=== PATIENT | female | born 1990 | race African-American/Black ===

== ENCOUNTER → 2018-06-24 15:46 | Outpatient (CLI) | payer OTHER, SELFPAY | PROVIDERS: Family Provider Obstetrics & Gynecology; PCP Family Medicine; Visit Provider Obstetrics & Gynecology | DX: Z34.83 Encounter for supervision of other normal pregnancy, third trimester (principal) ==

== ENCOUNTER 2018-07-17 19:09 | Observation (INO) | payer OTHER, SELFPAY | END 2018-07-17 21:15 | disposition home or self-care (01) | LOC: LABOR 19:11 | PROVIDERS: Admitting Provider Specialist; Family Provider Obstetrics & Gynecology; PCP Family Medicine; Visit Provider Specialist | DX: Z34.83 Encounter for supervision of other normal pregnancy, third trimester (principal); Z3A.38 38 weeks gestation of pregnancy | CPT/HCPCS: 59025; 59050; G0378; G0379 ==

== ENCOUNTER 2018-07-19 00:36 | Inpatient (IN) | payer OTHER, SELFPAY ==
[2018-07-19] MEDS: LACTATED RINGERS 1,000 ML 100 ML IV (01:00)
[2018-07-19 01:32] LABS: Add Manual Diff / Slide Review NO; Eosinophils Percent Auto 1.3 % (2-4); Hematocrit 32.3 % (36-46); Hemoglobin 10.9 g/dL (12.0-16.0); Lymphocytes Percent Auto 27.3 % (25-40); Mean Corpuscular HGB Conc 33.9 % (30-36); Mean Corpuscular Hemoglobin 32.3 PG (26-34); Mean Corpuscular Volume 95.2 fL (80-100); Monocytes Percent Auto 7.4 % (3-14); Neutrophils Absolute Auto 7000 /uL (3000-5900); Platelet Count 227 X10^3/uL (150-400); Red Blood Cell Count 3.39 X10^6/uL (4.0-5.2); Red Cell Distribution Width 15.6 % (11.6-14.8); White Blood Cell Count 11.1 X10^3/uL (4.5-11.0)
--- NOTE | 2018-07-19 01:49 | PM.OBPRVD ---
Delivery date: 07/19/18 Intrapartal events: Precipitous Labor < 3 hours Induction method: none Delivery monitor: external FHT and external uterine Route of delivery: Episiotomy description: None Laceration description: None Estimated blood loss (mL): 150 Anesthesia type: None Complications: None Narrative: Patient complete and pushed with 3 contractions. At 1:33 a.m., a live male infant delivered spontaneously over an intact perineum. There was a compound presentation with the right arm with the delivery of the body. This delivered without difficulty and the infant was placed on mom's abdomen. The cord was double clamped and cut. Cord bloods were obtained. Placenta delivered intact with a 3 vessel cord at 1:40 a.m.. Fundus was massaged to firm. No lacerations noted. Apgars 8 at 1 min and 9 at 5 min. . No analgesia. Mom and stable to recovery. Plan for aftercare: To routine care
--- NOTE | 2018-07-19 01:56 | P.HPOB_ITS ---
OB HPI Date/Time Date of admission: 07/19/18 Date Patient Seen: 07/19/18 Time Patient Seen: 01:51 History of Present Condition Chief complaint: observation : 2 Para: 1 Estimated Date of Delivery: 07/26/18 Estimated Gestational Age (weeks): 39 Narrative: Jennifer Lutz is a 28 year old female 2 para 1 at 39 weeks gestation who presented in active labor Comments: She progressed to complete dilation in 20 min. History of Present care: good care, initiated at week # (5), number of visits (10) and pounds weight gain (39) Dating criteria: LMP confirmed by 1st trimester US Ultrasounds: normal 1st trimester US and abnormal US findings (Pyelectasis) Obstetrical complications: none Medical complications: none Preadmission Labs Blood type: O (+) positive -: Antibody screen: negative, GBS status: positive, HBsAG: negative, HIV: negative, HSV 1: positive, HSV 2: negative and RPR/VDLR: negative -: Chlamydia screen: not detected and Gonorrhea screen: not detected -: Rubella: not immune and Varicella: immune HCAB: negative Quad screen: Normal Urine: Negative Prior (ies) History: 1 Evaluation Evaluation Baseline heart rate: 130 Variability: Moderate (11-25) monitor accelerations: Present monitor decelerations: Absent Contraction Frequency (minutes): 3 Uterine Contraction Intensity: Strong/Firm Category of Tracing: I Cervical dilation (cm): 10 Cervical effacement (%): 100 station: +4 Laboratory results: Laboratory Tests 07/19/18 01:00 WBC 11.1 H RBC 3.39 L Hgb 10.9 L Hct 32.3 L MCV 95.2 MCH 32.3 MCHC 33.9 RDW 15.6 H Plt Count 227 Neut % (Auto) 63.0 Lymph % (Auto) 27.3 [place] % (Auto) 7.4 Eos % (Auto) 1.3 L Baso % (Auto) 1.0 Neut # (Auto) 7000 H Meds Allergies Allergy/AdvReac Type Severity Reaction Status Date / Time Sulfa (Sulfonamide Allergy Severe rash Unverified 02/18/18 12:35 Antibiotics) [SULFA (SULFONAMIDE ANTIBIOTICS)] kathie Allergy Severe Uncoded 02/18/18 12:35 Exam Vital Signs (past 8 hours): Generally: Patient in good control at 10 cm dilated without analgesia Objective Labs Result Diagrams: 07/19/18 01:00 Labs: Laboratory Results - last 24 hr 07/19/18 01:00 WBC 11.1 H RBC 3.39 L Hgb 10.9 L Hct 32.3 L MCV 95.2 MCH 32.3 MCHC 33.9 RDW 15.6 H Plt Count 227 Neut % (Auto) 63.0 Lymph % (Auto) 27.3 [place] % (Auto) 7.4 Eos % (Auto) 1.3 L Baso % (Auto) 1.0 Neut # (Auto) 7000 H Assessment and Plan (1) 39 weeks gestation of : Current visit: Yes Status: Acute Assessment: 28-year-old 2 para 1 at 39 weeks gestation in active labor entering 2nd stage Plan: Expectant management of spontaneous vaginal delivery
[2018-07-19] MEDS: IBUPROFEN 600 MG TABLET PO ×4 (03:00→23:08)
[2018-07-19 03:52] VITALS: BP 143/73
--- NOTE | 2018-07-19 04:40 | PM.OBTRLD ---
Visit Information Visit Information Date of evaluation: 07/17/18 Primary OB Provider: Elo Gonsalves Reason for Evaluation: Yes rule out labor Vital Signs Vital Signs: Vital Signs - 8 hr 07/19/18 03:52 Blood Pressure 143/73 H [facility] Social History Smoking Status: Never smoker Exam Vital Signs (past 8 hours): - 07/19/18 03:52 Blood Pressure 143/73 H Objective Labs Result Diagrams: 07/19/18 01:00 Labs: Laboratory Results - last 24 hr 07/19/18 07/19/18 01:00 01:00 WBC 11.1 H RBC 3.39 L Hgb 10.9 L Hct 32.3 L MCV 95.2 MCH 32.3 MCHC 33.9 RDW 15.6 H Plt Count 227 Neut % (Auto) 63.0 Lymph % (Auto) 27.3 [place] % (Auto) 7.4 Eos % (Auto) 1.3 L Baso % (Auto) 1.0 Neut # (Auto) 7000 H Blood Type O Positive Antibody Screen Negative Evaluation Evaluation Baseline heart rate: 140 Variability: Moderate (11-25) monitor accelerations: Present monitor decelerations: Absent Contraction Frequency (minutes): 7 Uterine Contraction Intensity: Mild Category of Tracing: I Cervical dilation (cm): 3 Cervical effacement (%): 80 station: -2 Laboratory results: Laboratory Tests 07/19/18 07/19/18 01:00 01:00 WBC 11.1 H RBC 3.39 L Hgb 10.9 L Hct 32.3 L MCV 95.2 MCH 32.3 MCHC 33.9 RDW 15.6 H Plt Count 227 Neut % (Auto) 63.0 Lymph % (Auto) 27.3 [place] % (Auto) 7.4 Eos % (Auto) 1.3 L Baso % (Auto) 1.0 Neut # (Auto) 7000 H Blood Type O Positive Antibody Screen Negative Diagnosis, Plan/Disposition Final Diagnosis (1) 39 weeks gestation of : Current Visit: Yes Status: Acute Plan/Disposition Plan: Patient is not in active labor and was discharged home to be followed up at her routine OB appointment OB Disposition: home
--- NOTE | 2018-07-19 04:43 | P.TNLD_ITS ---
Visit Information Visit Information Date of evaluation: 07/17/18 Primary OB Provider: Elo Gonsalves Reason for Evaluation: Yes rule out labor Vital Signs Vital Signs: Vital Signs - 8 hr 07/19/18 03:52 Blood Pressure 143/73 H [facility] Social History Smoking Status: Never smoker Exam Vital Signs (past 8 hours): - 07/19/18 03:52 Blood Pressure 143/73 H Objective Labs Result Diagrams: 07/19/18 01:00 Labs: Laboratory Results - last 24 hr 07/19/18 07/19/18 01:00 01:00 WBC 11.1 H RBC 3.39 L Hgb 10.9 L Hct 32.3 L MCV 95.2 MCH 32.3 MCHC 33.9 RDW 15.6 H Plt Count 227 Neut % (Auto) 63.0 Lymph % (Auto) 27.3 [place] % (Auto) 7.4 Eos % (Auto) 1.3 L Baso % (Auto) 1.0 Neut # (Auto) 7000 H Blood Type O Positive Antibody Screen Negative Evaluation Evaluation Baseline heart rate: 140 Variability: Moderate (11-25) monitor accelerations: Present monitor decelerations: Absent Contraction Frequency (minutes): 7 Uterine Contraction Intensity: Mild Category of Tracing: I Cervical dilation (cm): 3 Cervical effacement (%): 80 station: -2 Laboratory results: Laboratory Tests 07/19/18 07/19/18 01:00 01:00 WBC 11.1 H RBC 3.39 L Hgb 10.9 L Hct 32.3 L MCV 95.2 MCH 32.3 MCHC 33.9 RDW 15.6 H Plt Count 227 Neut % (Auto) 63.0 Lymph % (Auto) 27.3 [place] % (Auto) 7.4 Eos % (Auto) 1.3 L Baso % (Auto) 1.0 Neut # (Auto) 7000 H Blood Type O Positive Antibody Screen Negative Diagnosis, Plan/Disposition Final Diagnosis (1) 39 weeks gestation of : Current Visit: Yes Status: Acute Plan/Disposition Plan: Patient is not in active labor and was discharged home to be followed up at her routine OB appointment OB Disposition: home
[2018-07-19] MEDS: OXYCODONE/ACETAMINOPHEN 5/325 TABLET 2 TAB PO ×2 (17:08→21:02)
--- NOTE | 2018-07-19 20:56 | PM.OBPN.1 ---
Subjective - OB Interval history: 28-year-old 2 para 2 day # 0-1 status post spontaneous vaginal delivery Patient comments: no complaints and pain well controlled baby status: doing well and nursing well feeding status: exclusively breast feeding Date Patient Seen: 07/19/18 Time Patient Seen: 13:45 Exam Vital Signs (past 8 hours): Generally: Patient is sitting up in bed, nursing infant, no acute distress Fundus: Firm at U Extremities: Negative Hom[place], no edema Objective Labs Result Diagrams: 07/19/18 01:00 Labs: Laboratory Results - last 24 hr 07/19/18 07/19/18 01:00 01:00 WBC 11.1 H RBC 3.39 L Hgb 10.9 L Hct 32.3 L MCV 95.2 MCH 32.3 MCHC 33.9 RDW 15.6 H Plt Count 227 Neut % (Auto) 63.0 Lymph % (Auto) 27.3 [place] % (Auto) 7.4 Eos % (Auto) 1.3 L Baso % (Auto) 1.0 Neut # (Auto) 7000 H Blood Type O Positive Antibody Screen Negative Assessment & Plan (1) 39 weeks gestation of : Status: Acute Current Visit: Yes (2) Normal spontaneous vaginal delivery: Status: Acute Assessment and plan: Assessment: day # 0-1 status post spontaneous vaginal delivery, doing very well Plan: Anticipate discharge 07/20/2018 Continue routine care Current Visit: Yes Time Spent With Patient Total time spent is greater than 50% in coordination of care (as documented) at patient's floor/unit and/or counseling patient: less than 15 minutes
[2018-07-20] MEDS: OXYCODONE/ACETAMINOPHEN 5/325 TABLET 2 TAB PO (01:15)
[2018-07-20 05:08] VITALS: TEMP 36.6
[2018-07-20] MEDS: IBUPROFEN 600 MG TABLET PO (05:08)
--- NOTE | 2018-07-20 07:54 | P.DS_ITS ---
Discharge Providers Date of admission: 07/19/18 00:36 Primary care physician: Jess Buckley DO Consults: 07/19/18 02:59 Consult to [employer] Technology Instructor Routine Comment: Discharge provider: Latrice Dominguez MD Discharge Date: 07/20/18 Summary Date Patient Seen: 07/20/18 Time Patient Seen: 07:54 Peripartum Data Infant Delivery Method: Natural Vaginal Laceration description: None Discharge Diagnosis (1) 39 weeks gestation of : Status: Acute (2) Normal spontaneous vaginal delivery: Status: Acute Time Spent with Patient Total time spent providing and/or coordinating discharge services: Objective Labs Result Diagrams: 07/19/18 01:00 Discharge Plan Discharge Plan Patient Disposition: Home Discharge Med Rec/Prescriptions Prescriptions: No Action No Known Home Medications RF: 0 Follow up/Referrals: Elo Gonsalves MD [Family Provider] - 6 Weeks Jess Buckley DO [Primary Care Provider] - Provider Discharge Instructions Diet: Regular Skin/Wound/Dressing Care Report to your healthcare provider any signs of infection, such as:: chills, fever, increased pain and unusual drainage Discharge Data Primary Care Provider: Jess Buckley Attending Provider: Elo Gonsalves Admit Date/Time: 07/19/18 00:36
[2018-07-20] MEDS: MEASLES,MUMPS,RUBELLA VACC/PF 0.5 ML VIAL SUBCUT (08:56)
[2018-07-20 09:42] VITALS: BP 120/85; PULSE 82; RESP 17; TEMP 36.7
== END 2018-07-20 11:00 | disposition home or self-care (01) | DRG 775 ==
PROVIDERS: Admitting Provider Obstetrics & Gynecology; Family Provider Obstetrics & Gynecology; PCP Family Medicine; Visit Provider Obstetrics & Gynecology
DX: O99.824 Streptococcus B carrier state complicating childbirth (principal); Z3A.39 39 weeks gestation of pregnancy; Z37.0 Single live birth
CPT/HCPCS: 59025; 59050; 59400; 85025; 86850; 86900; 86901; G0379

== ENCOUNTER → 2019-01-04 14:56 | Outpatient (CLI) | payer OTHER, SELFPAY ==
--- NOTE | 2019-01-04 14:57 | DI.US.S_ITS ---
PROCEDURE: US PELVIC COMPLETE INDICATIONS: lower abdominal pain TECHNIQUE: Real-time scanning was performed of the pelvic organs, with image documentation. Additional endovaginal scanning was necessary due to incomplete visualization of the adnexal and endometrial structures by transabdominal scanning. COMPARISON: None. FINDINGS: Transabdominal scanning: Limited scanning through the kidneys shows no hydronephrosis. No pathologic free abdominal or pelvic fluid. Endovaginal scanning: Uterus: Uterus is normal in size at 8.8 x 3.7 x 4.5 cm. The endometrium measures 3-4 mm in combined thickness. Hypoechoic uterine lesions are seen, which are attributed to fibroids. They measure as follows: Right anterior uterus, 1.1 x 0.6 x 0.8 cm Left posterior uterus, 1.5 x 1.1 x 1.2 cm Ovaries: The right ovary measures 4.4 x 1.8 x 1.8 cm. The left ovary measures 3.7 x 2.4 x 2.6 cm. The ovaries have a normal sonographic appearance, with normal-appearing cystic follicles. No adnexal masses are seen. IMPRESSION: Small uterine fibroids are seen. Dictated by: David Escobedo M.D. on 01/04/2019 at 16:00 Approved by: David Escobedo M.D. on 01/04/2019 at 16:02
== END ==
PROVIDERS: Family Provider Obstetrics & Gynecology; PCP Family Medicine; Visit Provider Obstetrics & Gynecology
DX: D25.9 Leiomyoma of uterus, unspecified (principal); R10.30 Lower abdominal pain, unspecified; N91.2 Amenorrhea, unspecified
CPT/HCPCS: 76830; 76856

== ENCOUNTER → 2019-06-22 14:47 | Outpatient (CLI) | payer OTHER, SELFPAY ==
[2019-06-22 15:32] LABS: Add Manual Diff / Slide Review NO; Basophils Absolute Auto 100 /uL (0-100); Basophils Percent Auto 0.7 % (0-2); Eosinophils Absolute Auto 100 /uL (0-450); Eosinophils Percent Auto 1.6 % (2-4); Hematocrit 38.5 % (36-46); Lymphocytes Absolute Auto 2100 /uL (1100-4500); Lymphocytes Percent Auto 26.5 % (25-40); Mean Corpuscular HGB Conc 33.8 % (30-36); Mean Corpuscular Hemoglobin 30.5 PG (26-34); Mean Corpuscular Volume 90.2 fL (80-100); Monocytes Absolute Auto 400 /uL (0-900); Monocytes Percent Auto 4.5 % (3-14); Neutrophils Absolute Auto 5200 /uL (1500-7000); Neutrophils Percent Auto 66.7 % (50-75); Platelet Count 299 X10^3/uL (150-400); Red Blood Cell Count 4.27 X10^6/uL (4.0-5.2); Red Cell Distribution Width 13.3 % (11.6-14.8); White Blood Cell Count 7.8 X10^3/uL (4.5-11.0)
[2019-06-22 15:44] LABS: Appearance Urine UA CLEAR; Bilirubin Urine UA NEGATIVE (NEGATIVE); Color Urine UA YELLOW; Glucose Urine UA NEGATIVE (Negative); Ketones Urine UA NEGATIVE (NEGATIVE); Leukocyte Esterase Urine UA TRACE (NEGATIVE); Nitrite Urine UA NEGATIVE (Negative); Occult Blood Urine UA 1+ (Negative); Protein Urine UA NEGATIVE (Negative); Urobilinogen Urine UA 0.2 E.U./dL (0.2)
[2019-06-22 15:58] LABS: Alanine Aminotransferase 29 IU/L (9-52); Albumin 4.6 g/dL (3.5-5.0); Albumin Globulin Ratio 1.2 (1.0-2.8); Alkaline Phosphatase 84 U/L (38-126); Aspartate Aminotransferase 33 IU/L (14-36); BUN Creatinine Ratio 21.3 (6-22); Bilirubin Total 0.3 mg/dL (0.2-1.3); Blood Urea Nitrogen 17 mg/dL (7-17); Calcium 9.9 mg/dL (8.4-10.2); Carbon Dioxide 29 mmol/L (22-32); Chloride 105 mmol/L (98-107); Estimated Glomerular Filt Rate > 60.0 mL/min (>60); Globulin 3.8 g/dL (1.7-4.1); Glucose 95 mg/dL (70-100); HEMOLYSIS < 15 (0-50); Potassium 3.8 mmol/L (3.4-5.1); Sodium 143 mmol/L (137-145); Total Protein 8.4 g/dL (6.3-8.2)
[2019-06-22 16:17] LABS: RBC Urine 0-1/HPF (0-5/HPF); WBC Urine 5-10/HPF (0-5/HPF)
[2019-06-22 16:18] LABS: Amorphous Sediment Urine 1+; Bacteria Urine Moderate (10-30); Culture Indicated Urine Specimen Cultured; Mucus Urine 1+ (Negative); Squamous Epithelial Cell Urine 5-10 /HPF (0-5/HPF)
[2019-06-22 16:29] LABS: TSH w/ Reflex to FT4 1.27 uIU/mL (0.47-4.68)
== END ==
PROVIDERS: PCP Family Medicine; Visit Provider Registered Nurse
DX: R23.2 Flushing (principal)
CPT/HCPCS: 36415; 80053; 81001; 84443; 85025; 87086

== ENCOUNTER → 2025-01-04 12:22 | Outpatient (CLI) | payer OTHER, SELFPAY ==
[2025-01-04 12:57] LABS: Add Manual Diff / Slide Review NO; Basophils Absolute Auto 100 /uL (0-100); Basophils Percent Auto 0.7 % (0-2); Eosinophils Absolute Auto 200 /uL (0-450); Hematocrit 35.4 % (36-46); Hemoglobin 12.1 g/dL (12.0-16.0); Lymphocytes Absolute Auto 1800 /uL (1100-4500); Lymphocytes Percent Auto 21.8 % (25-40); Mean Corpuscular HGB Conc 34.2 % (30-36); Mean Corpuscular Hemoglobin 31.7 PG (26-34); Mean Corpuscular Volume 92.6 fL (80-100); Monocytes Absolute Auto 500 /uL (0-900); Monocytes Percent Auto 5.5 % (3-14); Neutrophils Absolute Auto 5800 /uL (1500-7000); Platelet Count 244 X10^3/uL (150-400); Red Blood Cell Count 3.83 X10^6/uL (4.0-5.2); Red Cell Distribution Width 13.2 % (11.6-14.8); White Blood Cell Count 8.2 X10^3/uL (4.5-11.0)
[2025-01-04 13:13] LABS: Alanine Aminotransferase 21 IU/L (<35); Albumin 4.5 g/dL (3.5-5.0); Albumin Globulin Ratio 1.4 (1.0-2.8); Alkaline Phosphatase 53 U/L (38-126); Aspartate Aminotransferase 27 IU/L (14-36); BUN Creatinine Ratio 23.5 (6-22); Bilirubin Total 0.5 mg/dL (0.2-1.3); Blood Urea Nitrogen 16 mg/dL (7-17); Calcium 9.3 mg/dL (8.4-10.2); Carbon Dioxide 27 mmol/L (22-32); Chloride 102 mmol/L (98-107); Cholesterol 172 mg/dL (140-199); Estimated Glomerular Filt Rate > 60 mL/min (>60); Globulin 3.2 g/dL (1.7-4.1); Glucose 92 mg/dL (70-100); HDL Cholesterol 51 mg/dL (40-60); HEMOLYSIS < 15 (0-50); LDL Cholesterol Calculated 115 mg/dL (<100); Potassium 3.7 mmol/L (3.4-5.1); Sodium 136 mmol/L (137-145); Total Protein 7.7 g/dL (6.3-8.2); Triglycerides 30 mg/dL (35-150)
[2025-01-04 13:15] LABS: Hemoglobin A1C% w Est Avg Glu 4.8 % (4.0-6.0)
[2025-01-04 13:47] LABS: Thyroid Stimulating Hormone 1.09 uIU/mL (0.47-4.68)
== END ==
PROVIDERS: PCP Family Medicine; Referring Provider Family Medicine; Visit Provider Family Medicine
DX: I10 Essential (primary) hypertension (principal); Z68.32 Body mass index [BMI] 32.0-32.9, adult
CPT/HCPCS: 80053; 80061; 83036; 84443; 85025

== ENCOUNTER 2025-06-12 10:38 | Emergency (ER) | payer OTHER, SELFPAY ==
[2025-06-12 11:37] VITALS: BP 127/78; PULSE 49; RESP 18; TEMP 36.2; O2SAT 99; BMI 31.6
--- NOTE | 2025-06-12 11:42 | DI.RAD.S_ITS ---
PROCEDURE: XR FOOT LT MIN 3V INDICATIONS: injury/increased pain TECHNIQUE: 3 views of the foot were acquired. COMPARISON: [facility], , FOOT 2V RIGHT, 07/28/2016, 11:44. FINDINGS: Bones: On 1 image, there is a potential fracture of the proximal phalanx of the 4th toe. No suspicious bony lesions. Age-appropriate bony degenerative changes are seen. Soft tissues: No tibiotalar joint effusion. Achilles tendon appears normal. IMPRESSION: Potential fracture of the 4th toe seen on 1 image only. Please correlate with focal tenderness. Dictated by: David Escobedo M.D. on 06/12/2025 at 11:29 Approved by: David Escobedo M.D. on 06/12/2025 at 11:31
--- NOTE | 2025-06-12 13:21 | ED.LOWEXIN ---
HPI - Extremity Injury (Lower) General Chief Complaint: Extremity Injury, Lower Stated Complaint: Poss broken toe: LT foot 4th digit Time Seen by Provider: 06/12/25 13:08 Source: patient Mode of arrival: Ambulatory History of Present Illness HPI Narrative: Ms. Lutz is a very pleasant 35-year-old female who presents to the emergency department for left 4th toe pain x2 days. Patient states about 2 days ago she accidentally stubbed her left 4th toe on a copy below her bed. She had immediate severe pain at the base of the 4th toe. She is currently on a fitness journey so she attempted to continue exercising over the last 2 days but she has had persistent pain and was concerned she may have broken the toe. She has focal pain at the base of the 4th toe overlying the proximal phalanx. There is no bruising or deformities. She has been taping it to her 5th toe. No other injuries. Related Data Previous Rx's ?Medication ?Instructions ?Recorded hydrochlorothiazide 50 mg tablet 50 mg PO DAILY #60 tabs 12/16/24 Allergies Allergy/AdvReac Type Severity Reaction Status Date / Time Sulfa (Sulfonamide Allergy Severe rash Verified 06/12/25 11:38 Antibiotics) (SULFA (SULFONAMIDE ANTIBIOTICS)) kathie Allergy Severe Rash Uncoded 06/12/25 11:38 Review of Systems Review of Systems ROS Unobtainable: All systems reviewed & are unremarkable except as noted in HPI and below Patient History Medical History Hypertension Fracture of right toe Family History Father Hypertension Mother Hypertension Mental health problem Brother Mental health problem Grandmother Hypertension Grandfather Hypertension Grandmother Hypertension Social History Smoking Status: Never smoker Smoking Status: Never smoker Exam Narrative Exam Narrative: GENERAL: 35 year old patient appears stated age. Well-developed patient, in no acute distress. HEAD: Atraumatic. Normocephalic. CARDIOVASCULAR: Regular rate RESPIRATORY: ?Nonlabored respirations. ?Speaking in clear, full sentences. EXTREMITIES: Patient has tenderness to palpation of left 4th toe overlying the proximal phalanx. There are no obvious deformities, toe is straight, no bruising or wounds. Brisk capillary refill and sensation intact to light touch distal to the injury. Strong DP and PT pulse. NEURO: AOx3. ?Clear speech. ?Moves all 4 extremities appropriately. SKIN: No rash or erythema of visible areas Initial Vital Signs Initial Vital Signs: Vital Signs Temperature 97.2 F L 06/12/25 11:37 Pulse Rate 49 L 06/12/25 11:37 Respiratory Rate 18 06/12/25 11:37 Blood Pressure 127/78 06/12/25 11:37 Pulse Oximetry 99 06/12/25 11:37 Oxygen Delivery Method Room Air 06/12/25 11:37 Course Orders Ordered: ED Orders 06/12/25 11:42 XR foot LT min 3V Stat Vital Signs Vital signs: Vital Signs - 8 hr 06/12/25 11:37 06/12/25 13:27 Temperature 97.2 F L Pulse Rate 49 L 56 L Respiratory Rate 18 18 Blood Pressure 127/78 136/82 Pulse Oximetry 99 100 Oxygen Delivery Method Room Air Room Air MDM - Extremity Injury (Lower) Medical Records Attestation: I reviewed the patient's medical records. Imaging Data Left Foot XR: Radiologist's Impression: PROCEDURE: XR FOOT LT MIN 3V INDICATIONS: injury/increased pain TECHNIQUE: 3 views of the foot were acquired. COMPARISON: [facility], , FOOT 2V RIGHT, 07/28/2016, 11:44. FINDINGS: Bones: On 1 image, there is a potential fracture of the proximal phalanx of the 4th toe. No suspicious bony lesions. Age-appropriate bony degenerative changes are seen. Soft tissues: No tibiotalar joint effusion. Achilles tendon appears normal. IMPRESSION: Potential fracture of the 4th toe seen on 1 image only. Please correlate with focal tenderness. Dictated by: David Escobedo M.D. on 06/12/2025 at 11:29 Approved by: David Escobedo M.D. on 06/12/2025 at 11:31 [facility] Narrative Medical decision making narrative: 35-year-old female who presents to the emergency department for left 4th toe pain x2 days. Differential diagnosis includes but isn't limited due to fracture, sprain, strain, etc. On exam patient is in no acute distress, nontoxic appearing, she has focal tenderness to palpation of the base of the 4th toe with no deformities wounds or bruising. X-ray obtained in triage reveals potential fracture of the 4th toe seen on 1 image only, please correlate with focal tenderness. Diagnosis of left 4th toe proximal phalanx fracture, recommended ryan tape, she was provided with a postoperative shoe and crutches. Recommended rice therapy, ibuprofen and Tylenol, follow up with PCP or ortho for further management. Discussed ED return precautions. She verbalized understanding of all information agreeable with the plan. She is stable for discharge home. Discharge Plan Departure Patient Disposition: Home Clinical Impression: Closed fracture of fourth toe of left foot Qualifiers: Encounter type: initial encounter Qualified Code(s): S92.502A - Displaced unspecified fracture of left lesser toe(s), initial encounter for closed fracture Instructions: DI for Toe Fracture Activity Restrictions/Additional Instructions: Dear Ms. Lutz, Thank you for coming to the emergency department. Today you were evaluated for pain of the left 4th toe, your x-ray did reveal that you broke the proximal phalanx. Please use crutches as needed for comfort, ryan tape the toe to 1 of its neighbors for support, and use the hard bottom shoe. Broken toes typically take 4-6 weeks to heal, but please follow up with your primary care doctor or Orthopedics to assure proper healing. Please use RICE therapy for your pain in addition to ibuprofen/acetaminophen. Rest the painful area. Ice the area of pain/swelling for at least 15 minutes, 4x a day. Compress the area of swelling using a brace, wrap, or splint if applied. Elevate the painful or swollen extremity by supporting it above the level of the heart with pillows when sitting or laying. Please take Ibuprofen (Motrin/Advil) or Acetaminophen (Tylenol) for pain. These are available over the counter. You may take Ibuprofen 600 mg every 8 hours with food for pain. You may also take Acetaminophen 650 mg every 4-6 hours for pain. Do not exceed 3000 mg of Tylenol a day as this can cause liver damage. Do not drink alcohol with either of these medications. Please follow up with your primary care doctor within the next 2-3 days for ER follow-up. (If you do not have a PCP you can call [phone]. ?to schedule an appointment with an [facility] Primary Care Provider) IF YOU DEVELOP ANY NEW OR WORSENING SYMPTOMS, RETURN TO THE ER! Please read the attached instructions, they highlight more specific treatments and interventions for you at home. Thank you for letting me participate in your care, Kristi Bhat PA-C Prescriptions: No Action hydrochlorothiazide 50 mg tablet 50 mg PO DAILY Qty: 60 3RF Referrals: Samantha Mendoza DO [Physician, Orthopedic Surgery] Referral Note: 4th toe fracture Nan Tay DO [Primary Care Provider, Family Practice] Stand Alone Forms: Patient Portal/API
[2025-06-12 13:27] VITALS: BP 136/82; PULSE 56; RESP 18; O2SAT 100
== END 2025-06-12 13:41 | disposition home or self-care (01) ==
PROVIDERS: Emergency Provider Physician Assistant; PCP Family Medicine
DX: S92.502A Displaced unspecified fracture of left lesser toe(s), initial encounter for closed fracture (principal); X58.XXXA Exposure to other specified factors, initial encounter
CPT/HCPCS: 73630; 99282; 99283